=== PATIENT | male | born 1955 | race Caucasian/White ===

== ENCOUNTER 2019-11-30 09:49 | Emergency (ER) | payer MEDICARE, OTHER ==
[~2019-11-30] VITALS: Ht 177.8 cm; Wt 97.7 kg
[~2019-11-30 09:49] MED LIST: NO HOME MEDICATIONS
[2019-11-30 09:58] VITALS: TEMP 97.6
[2019-11-30 10:42] LABS: COLLECTION METHOD CLEAN CATCH
[2019-11-30 10:50] LABS: PH 5 (5-8); SQUAMOUS EPITHELIAL None Seen /hpf; URINE APPEARANCE Clear; URINE BACTERIA None Seen /hpf; URINE BILIRUBIN Negative (NEGATIVE); URINE BLOOD Negative (NEGATIVE); URINE COLOR Yellow; URINE GLUCOSE Negative (NEGATIVE); URINE KETONE Negative (NEGATIVE); URINE LEUKOCYTE ESTERASE Negative (NEGATIVE); URINE NITRATE Negative (NEGATIVE); URINE PROTEIN(semi-quant) Negative (NEGATIVE); URINE RBC None Seen /hpf; URINE UROBILINOGEN Negative (NEGATIVE)
[2019-11-30] MEDS ORDERED: ZANAFLEX 4MG TAB4 MG PO (11:23)
[2019-11-30] MEDS ORDERED: NAPROSYN500 MG PO (11:23)
[2019-11-30 11:36] VITALS: BP 151/88; PULSE 80
== END 2019-11-30 11:36 | disposition home or self-care (01) ==
LOC: COL.ER 09:49
PROVIDERS: Nurse Practitioner Primary Care
DX: S39.012A Strain of muscle, fascia and tendon of lower back, initial encounter (principal); X58.XXXA Exposure to other specified factors, initial encounter; Y93.H9 Activity, other involving exterior property and land maintenance, building and construction; Y92.34 Swimming pool (public) as the place of occurrence of the external cause

== ENCOUNTER → 2023-06-21 | Outpatient (CLI) | payer MEDICARE, OTHER ==
[~2023-06-21] MED LIST changes: +NAPROSYN500 MG PO; +ZANAFLEX 4MG TAB4 MG PO
== END ==
LOC: COL.RAD 08:26
DX: R07.89 Other chest pain (principal)
CPT/HCPCS: J0665; J3301